=== PATIENT | female | born 1970 ===

== ENCOUNTER 2017-05-01 13:00 | Emergency (ER) | payer OTHER ==
[2017-05-01 13:01] VITALS: BMI 30.2
[2017-05-01 13:09] VITALS: BP 123/72; PULSE 86; RESP 18; TEMP 98.5; O2SAT 99
--- NOTE | 2017-05-01 14:02 | C.PDOC ---
History Of Present Illness 46 year old female presents to the ED for evaluation of headache and lower back pain after she slipped and fell while walking on ice yesterday. Patient states she landed straight onto her back, fell against a car and struck the right side of the back of her head. Patient took Advil last night and has been applying ice pack to the areas today. She states the headache has improved and mainly complains of pain to lower back. She denies LOC, dizziness, vision change, neck pain, nausea, vomiting, urinary/bowel incontinence, extremity numbness/ weakness. Time Seen by Provider: 05/01/17 13:26 Chief Complaint (Nursing): Trauma History Per: Patient History/Exam Limitations: no limitations Onset/Duration Of Symptoms: Hrs Current Symptoms Are (Timing): Still Present Additional History Per: Patient Past Medical History Reviewed: Historical Data, Nursing Documentation, Vital Signs Vital Signs: Last Vital Signs Temp 98.5 F 05/01/17 13:07 Pulse 86 05/01/17 13:07 Resp 18 05/01/17 13:07 BP 123/72 05/01/17 13:07 Pulse Ox 99 05/01/17 15:48 - Medical History PMH: Hypercholesterolemia Surgical History: Tonsillectomy Family History: States: Unknown Family Hx - Social History Hx Alcohol Use: No Hx Substance Use: No - Immunization History Hx Tetanus Toxoid Vaccination: No Hx Influenza Vaccination: No Hx Pneumococcal Vaccination: No Review Of Systems Eyes: Negative for: Vision Change Gastrointestinal: Negative for: Nausea, Vomiting Genitourinary: Negative for: Incontinence Musculoskeletal: Positive for: Back Pain (lower). Negative for: Neck Pain Neurological: Positive for: Headache. Negative for: Weakness, Numbness, Dizziness Physical Exam - Physical Exam Appears: Non-toxic, No Acute Distress Skin: Normal Color, Warm, Dry Head: Normacephalic, No Tenderness, No Swelling, No Abrasion, No Laceration, No Other (hematoma ) Eye(s): bilateral: Normal Inspection, PERRL, EOMI Oral Mucosa: Moist Neck: Supple Chest: Symmetrical, No Deformity, No Tenderness Cardiovascular: Rhythm Regular Respiratory: Normal Breath Sounds, No Accessory Muscle Use Back: Normal Inspection (no ecchymosis, bulging, swelling), No Vertebral Tenderness, Paraspinal Tenderness (lumbar) Extremity: Normal ROM, No Tenderness, Capillary Refill (less than 2 seconds), No Deformity, No Swelling Neurological/Psych: Oriented x3, Normal Speech, Normal Sensation Gait: Steady ED Course And Treatment O2 Sat by Pulse Oximetry: 99 (on RA) Pulse Ox Interpretation: Normal Reassessment Condition: Improved Medical Decision Making Medical Decision Making: Impression: lower back pain s.p fall Plan: * Flexeril PO * Toradol IM Based on history and exam, xrays and CTs not indicated. Patient has no neuro deficits and no vertebral tenderness. she is ambulatory without signs of discomfort. Patient treated with Toradol and Flexeril. Patient was observed in the ED and she started feeling better, got dressed and asked for discharge. Rx given. Patient is advised to follow up with her PMD within 1-2 days for further evaluation and/or return to the ED if symptoms persist or worsen. Disposition Counseled Patient/Family Regarding: Diagnosis, Need For Followup, Rx Given - Disposition Referrals: Darcy Maguire DO [Resident] - Disposition: HOME/ ROUTINE Disposition Time: 14:00 Condition: STABLE Additional Instructions: Vaya a isaac mdico o la clnica en 2-5 victoria sin falta, para mas evaluacin. Chalco los medicamentos cno indicado. Volver a la carmine de emergencia en cualquier momento si los sntomas persisten o empeoran. Prescriptions: Cyclobenzaprine [Cyclobenzaprine HCl] 10 mg PO TID #30 tab Ibuprofen [Motrin] 600 mg PO Q8 #30 tab Instructions: Contusion in Adults (ED) Forms: [employer] (Mohawk) Print Language: TUVALUAN - POA Present On Arrival: None - Clinical Impression Clinical Impression: Contusion of back, Fall from slipping on ice - PA / MANAGER OF [employer] / Resident Statement MD/DO has reviewed & agrees with the documentation as recorded. - Scribe Statement The provider has reviewed the documentation as recorded by the Scribe (Megan Smith) All medical record entries made by the Scribe were at my direction and personally dictated by me. I have reviewed the chart and agree that the record accurately reflects my personal performance of the history, physical exam, medical decision making, and the department course for this patient. I have also personally directed, reviewed, and agree with the discharge instructions and disposition.
== END 2017-05-01 14:08 | disposition home or self-care (01) ==
LOC: C.ER 13:00
DX: S30.0XXA Contusion of lower back and pelvis, initial encounter (principal); W00.0XXA Fall on same level due to ice and snow, initial encounter
CPT/HCPCS: 96372; 99285; J1885

== ENCOUNTER 2017-08-22 09:50 | Day surgery (SDC) | payer OTHER ==
[2017-05-31 10:26] VITALS: BMI 29.2
[2017-08-22 10:22] VITALS: TEMP 97.8
[2017-08-22] MEDS ORDERED: Propofol 10 mg/ml Inj (20 ML) ONE (11:17)
[2017-08-22 11:43] VITALS: O2SAT 99
[2017-08-22 12:02] VITALS: PULSE 70
[2017-08-22 12:18] VITALS: BP 112/71; RESP 15
== END 2017-08-22 12:35 | disposition home or self-care (01) ==
LOC: C.ENDO 09:50
PROVIDERS: ATTEND Internal Medicine
DX: K29.50 Unspecified chronic gastritis without bleeding (principal); K21.9 Gastro-esophageal reflux disease without esophagitis
CPT/HCPCS: 43239; 84703; 88305; J2001; J2704

== ENCOUNTER 2018-01-01 14:28 | Emergency (ER) | payer MEDICAID, OTHER ==
[2018-01-01 14:28] VITALS: BMI 29.2
--- NOTE | 2018-01-01 15:44 | C.PDOC ---
History Of Present Illness 47 y/o female, with PMHx of hyperlipidemia, presents to ED c/o intermittent midsternal sided chest pain described as pressure since this morning. Denies shortness of breath, fever, or other complaints. Time Seen by Provider: 01/01/18 15:34 Chief Complaint (Nursing): Chest Pain History Per: Patient History/Exam Limitations: no limitations Past Medical History Reviewed: Historical Data, Nursing Documentation, Vital Signs Vital Signs: Last Vital Signs Temp 98 F 01/01/18 17:13 Pulse 77 01/01/18 17:13 Resp 18 01/01/18 17:13 BP 131/72 01/01/18 17:13 Pulse Ox 98 01/01/18 23:22 - Medical History PMH: Gastritis, Hypercholesterolemia Denies: Chronic Kidney Disease Surgical History: Endoscopy, Tonsillectomy Family History: States: Unknown Family Hx - Social History Hx Alcohol Use: No Hx Substance Use: No - Immunization History Hx Tetanus Toxoid Vaccination: No Hx Influenza Vaccination: Yes Hx Pneumococcal Vaccination: No Review Of Systems Except As Marked, All Systems Reviewed And Found Negative. Constitutional: Negative for: Fever, Chills Cardiovascular: Positive for: Chest Pain. Negative for: Palpitations, Light Headedness Respiratory: Negative for: Cough, Shortness of Breath Physical Exam - Physical Exam Appears: Non-toxic, No Acute Distress Skin: Normal Color, Warm, Dry Head: Atraumatic, Normacephalic Eye(s): bilateral: Normal Inspection Oral Mucosa: Moist Chest: Symmetrical, No Tenderness Cardiovascular: Rhythm Regular Respiratory: Normal Breath Sounds, No Rales, No Rhonchi, No Wheezing Gastrointestinal/Abdominal: Soft, No Tenderness Extremity: Normal ROM, No Pedal Edema Neurological/Psych: Oriented x3, Normal Speech ED Course And Treatment - Laboratory Results Result Diagrams: 01/01/18 16:02 01/01/18 16:02 ECG: Interpreted By Me, Viewed By Me ECG Rhythm: Sinus Rhythm ECG Interpretation: No Acute Changes Interpretation Of ECG: No ST/T wave changes. Rate From EC (bpm) O2 Sat by Pulse Oximetry: 98 (RA) Pulse Ox Interpretation: Normal Against Medical Advice - AMA Patient Left Against Medical Advice: The patient declines admission to the hospital and wishes to leave the Emergency Department. This action is against my medical advice. This decision was made with informed refusal. The patient was told that admission to the hospital is necessary. Explanation of the reasons why were discussed. The risks of leaving were explained to the patient and include, but are not limited to, worsening of known or currently unknown conditions, permanent disability and from undiagnosed or untreated conditions. The patient has the capacity to make this informed decision and understands my explanation of the current medical problem and risks of leaving. The patient voluntarily accepts these risks and signed an AMA form documenting our conversation. The patient was given the opportunity to ask questions and reconsider. The patient was encouraged to return to the Emergency Department at any time for further care. Medical Decision Making Medical Decision Making: cp ro acs Plan: Blood work Urinalysis CXR EKG PERC (-) labs neg. pt with tyrpical symptoms, states midsternal heaviness. requests obs for r/ oac.s pt states she wishes to go home and return with worsening. signs ama. Disposition - Disposition Referrals: [facility] [Outside] [facility] [Outside] Henry Lr MD [Staff Provider] - Disposition: AGAINST MEDICAL ADVICE Disposition Time: 23:00 Condition: STABLE Additional Instructions: return to er with worsening symptoms or concerns. you are declining repeat lab tests and admission. Instructions: Chest Pain, Leaving Against Medical Advice Forms: [facility] (Hungarian) - Clinical Impression Clinical Impression: Chest pain - Scribe Statement The provider has reviewed the documentation as recorded by the Scribe KP All medical record entries made by the Scribe were at my direction and personally dictated by me. I have reviewed the chart and agree that the record accurately reflects my personal performance of the history, physical exam, medical decision making, and the department course for this patient. I have also personally directed, reviewed, and agree with the discharge instructions and disposition.
[2018-01-01 16:08] LABS: BASO # 0.1 K/uL (0.0-0.2); BASO % 0.8 % (0.0-2.0); EOS # 0.2 K/uL (0.0-0.7); EOS % 2.6 % (0.0-4.0); HEMOGLOBIN 13.5 g/dL (11.0-16.0); MEAN CELL VOLUME 80.4 fL (81.0-99.0); MEAN CORPUSCULAR HEMOGLOBIN 26.4 pg (27.0-31.0); MEAN CORPUSCULAR HGB CONC 32.8 g/dL (33.0-37.0); MEAN PLATELET VOLUME 7.1 fL (7.2-11.7); MONO # 0.5 K/uL (0.0-0.8); NEUT # 4.8 K/uL (1.8-7.0); NEUT % 55.6 % (50.0-75.0); RBC 5.11 Mil/uL (3.80-5.20); RED CELL DISTRIBUTION WIDTH 14.3 % (11.5-14.5); WHITE BLOOD COUNT 8.7 K/uL (4.8-10.8)
[2018-01-01 16:14] LABS: HCG,QUALITATIVE URINE NEGATIVE (NEGATIVE); PROTHROMBIN TIME 11.3 SECONDS (9.7-12.2)
[2018-01-01 16:17] LABS: ALB/GLOB RATIO 1.5 (1.0-2.1); ALBUMIN 4.3 g/dL (3.5-5.0); ALT/SGPT 29 U/L (9-52); AST/SGOT 19 U/L (14-36); BLOOD UREA NITROGEN 11 mg/dL (7-17); CALCIUM 9.1 mg/dl (8.6-10.4); GFR NON-AFRICAN AMERICAN > 60; SQUAMOUS EPITHIAL 1 /hpf (0-5); URINE BILIRUBIN NEGATIVE (NEGATIVE); URINE BLOOD NEGATIVE (NEGATIVE); URINE CLARITY Clear (Clear); URINE COLOR Yellow (YELLOW); URINE GLUCOSE (UA) NORMAL (Normal); URINE LEUKOCYTE ESTERASE NEG Leu/uL (Negative); URINE PROTEIN NEGATIVE (NEGATIVE); URINE UROBILINOGEN NORMAL mg/dL (0.2-1.0)
[2018-01-01 17:14] VITALS: BP 131/72; PULSE 77; RESP 18; TEMP 98
--- NOTE | 2018-01-01 17:58 | RAD ---
Date of service: 01/01/2018 HISTORY: chest pain COMPARISON: No prior. TECHNIQUE: Chest PA and lateral FINDINGS: LUNGS: Poor inspiration with low lung volumes, crowded bronchovascular markings and mild bibasilar atelectasis. PLEURA: No significant pleural effusion identified. No pneumothorax apparent. CARDIOVASCULAR: Mild cardiomegaly OSSEOUS STRUCTURES: No significant abnormalities. VISUALIZED UPPER ABDOMEN: Normal. OTHER FINDINGS: None. IMPRESSION: Poor inspiration with low lung volumes, crowded bronchovascular markings and mild bibasilar atelectasis.
[2018-01-01 21:12] VITALS: O2SAT 98
--- NOTE | 2018-01-03 15:55 | CARD ---
APPROVED REPORT Date of service: 01/01/2018 EKG Measurement Heart [id number] <Conclusion> Normal sinus rhythm with sinus arrhythmia Low voltage QRS Borderline ECG
== END 2018-01-01 17:14 | disposition left against medical advice (07) ==
LOC: C.ER 14:28
DX: R07.9 Chest pain, unspecified (principal); E78.00 Pure hypercholesterolemia, unspecified

== ENCOUNTER 2018-02-14 09:25 | Day surgery (SDC) | payer OTHER ==
[2018-02-14 10:16] VITALS: O2SAT 100
[2018-02-14] MEDS ORDERED: Propofol 10 mg/ml Inj (20 ML) ONE (11:06)
--- NOTE | 2018-02-14 11:10 | CP.SDSHP ---
Same Day Surgery H & P - History Proposed Procedure: EGD Pre-Op Diagnosis: SEE NOTES - Previous Medical/Surgical History Cardiac: Hypertension Endocrine/Metabolic: Other Misc: Other Pain: 4.Moderate Pain - Allergies Allergies: Allergies No Known Allergies Allergy (Verified 02/14/18 10:11) - Physical Exam General Appearance: N Vital Signs: Vital Signs 02/14/18 02/14/18 10:14 10:15 Temperature 97.1 F L 97.1 F L Pulse Rate 80 80 Respiratory 20 20 Rate Blood Pressure 111/68 111/68 O2 Sat by Pulse 100 100 Oximetry Mental Status: Alert & Oriented x3 Neuro: WNL Heart: WNL Lungs: WNL GI: Other - {Optional Preform as Required} Breast: WNL Abdomen: Other Rectal: Other Integument: WNL : WNL Ortho: WNL ENT: WNL - Impression Pt. Evaluated Today:Candidate for Anesthesia & Procedure: Yes - Date & Time Time: 11:10 Short Stay Discharge - Short Stay Discharge Admitting Diagnosis/Reason for Visit: GASTRITIS Disposition: HOME/ ROUTINE
[2018-02-14] MEDS ORDERED: Belladonna-Phenobarbital PO STA (11:11)
[2018-02-14 11:48] VITALS: TEMP 98.2
[2018-02-14 13:36] VITALS: BP 106/71; PULSE 77; RESP 16
== END 2018-02-14 13:10 | disposition home or self-care (01) ==
LOC: C.ENDO 09:25
PROVIDERS: ATTEND Specialist
DX: K21.0 Gastro-esophageal reflux disease with esophagitis (principal); K44.9 Diaphragmatic hernia without obstruction or gangrene; K29.70 Gastritis, unspecified, without bleeding; B37.81 Candidal esophagitis
CPT/HCPCS: 43239; 84703; 88104; 88305; 88342; J2704

== ENCOUNTER 2018-02-21 08:21 | Day surgery (SDC) | payer OTHER ==
[2018-02-20 13:13] VITALS: BMI 29.2
[2018-02-21] MEDS ORDERED: Propofol 10 mg/ml Inj (20 ML) ONE (09:49)
[2018-02-21] MEDS ORDERED: Lidocaine Hydrochloride 5 ML INJ ONE (09:49)
[2018-02-21] MEDS ORDERED: Lactated Ringer's 1,000 ML IV ONE (10:00)
--- NOTE | 2018-02-21 10:05 | CP.SDSHP ---
Same Day Surgery H & P - Previous Medical/Surgical History Cardiac: Hypertension Endocrine/Metabolic: Other Pain: 2.Mild Pain - Allergies Allergies: Allergies No Known Allergies Allergy (Verified 02/21/18 08:55) - Physical Exam General Appearance: n Vital Signs: Vital Signs 02/21/18 08:30 Temperature 98 F Pulse Rate 88 Respiratory 16 Rate Blood Pressure 116/64 O2 Sat by Pulse 100 Oximetry Mental Status: Alert & Oriented x3 Neuro: WNL Heart: Other Lungs: WNL GI: WNL - {Optional Preform as Required} Breast: WNL Abdomen: WNL Rectal: Other Integument: WNL : WNL Ortho: WNL ENT: WNL - Impression Pt. Evaluated Today:Candidate for Anesthesia & Procedure: Yes - Date & Time Time: 10:05 Short Stay Discharge - Short Stay Discharge Admitting Diagnosis/Reason for Visit: SCREENING Disposition: HOME/ ROUTINE
[2018-02-21] MEDS ORDERED: Belladonna-Phenobarbital PO ONE (11:00)
[2018-02-21 11:04] VITALS: TEMP 97.1
[2018-02-21 11:07] VITALS: RESP 15
[2018-02-21 11:22] VITALS: BP 107/71; PULSE 77; O2SAT 99
== END 2018-02-21 11:41 | disposition home or self-care (01) ==
LOC: C.ENDO 08:21
PROVIDERS: ATTEND Specialist
DX: Z12.11 Encounter for screening for malignant neoplasm of colon (principal); K64.8 Other hemorrhoids
CPT/HCPCS: 45380; 84703; 88305; J2704; J7120